=== PATIENT | male | born 1960 | race Caucasian/White ===

== ENCOUNTER 2019-01-16 23:40 | Emergency (ER) | payer MEDICAID ==
[~2019-01-16] VITALS: Ht 172.7 cm; Wt 72.6 kg
[2019-01-16 23:45] VITALS: BP 131/76
--- NOTE | 2019-01-16 23:48 | NUR ---
TO LOBBY A/W BED AMBULATORY
--- NOTE | 2019-01-17 00:33 | NUR ---
PT TAKEN TO BED 4
--- NOTE | 2019-01-17 00:40 | NUR ---
ASSESSMENT COMPLETED AT THIS TIME. PATIENT LAYING DOWN IN BED. BED IN LOW LOCKED POSITION. GIVEN BLANKET. WILL CHECK BACK.
--- NOTE | 2019-01-17 00:52 | NUR ---
Dr. Blackwood examining patient.
--- NOTE | 2019-01-17 01:48 | NUR ---
500MG TYLENOL GIVEN PER DR SAM VERBAL ORDER. UNABLE TO CHART ON EMAR.
[2019-01-17] MEDS ORDERED: ACETAMINOPHEN EXTRA STRENGTH 500 MG TAB ONE (01:56)
[2019-01-17 01:57] VITALS: BP 125/72
--- NOTE | 2019-01-17 01:57 | NUR ---
Patient discharged with v/s stable. Written and verbal after care instructions given and explained. Patient verbalized understanding. Ambulatory with steady gait. All questions addressed prior to discharge. Advised to follow up with PMD.
--- NOTE | 2019-01-17 01:58 | NUR ---
PROVIDED WITH HOMELESS PACKET AND BUS PASS
== END 2019-01-17 01:57 | disposition home or self-care (01) ==
LOC: MED 23:40
DX: R06.00 Dyspnea, unspecified (principal)
CPT/HCPCS: 99281; 99282